=== PATIENT | female | born 1960 | race Caucasian/White ===

== ENCOUNTER 2022-05-31 12:30 | Inpatient (IN) ==
[2022-05-31] MEDS ORDERED: ALBUT/IPRATROP 3MG/0.5MG NEB 3 ML VIAL ONE (12:37)
[2022-05-31] MEDS ORDERED: LORazepam 2 MG/2 ML SYR IV STA (12:39)
[2022-05-31] MEDS ORDERED: ALBUT/IPRATROP 3MG/0.5MG NEB 3 ML VIAL NEB STA (12:39)
[2022-05-31] MEDS ORDERED: LORazepam 2 MG/2 ML SYR ONE (12:39)
[2022-05-31 13:03] LABS: Base Excess VBG 2.3 mEq/L; Basophils # (auto) 0.02 K/uL (0-0.2); Basophils % (auto) 0.3 %; Eosinophils # (auto) 0.02 K/uL (0-0.50); Eosinophils % (auto) 0.3 %; HCO3 VBG 24 mmol/L; Hematocrit (blood only) 44.9 % (34.1-44.9); Hemoglobin 14.5 g/dl (12.0-16.0); Immature Granulocytes # (auto) 0.06 K/uL (0.00-0.02); Immature Granulocytes % (auto) 0.8 %; Lymphocytes # (auto) 1.07 K/uL (1.2-3.4); Lymphocytes % (auto) 14.9 %; Mean Corpuscular Hemoglobin 25.8 pg (25.0-34.0); Mean Corpuscular Hgb Conc 32.3 g/dL (32.0-36.0); Mean Corpuscular Volume 79.9 fL (80.0-100.0); Mean Platelet Volume 9.4 fL (9.4-12.3); Monocytes # (auto) 0.27 K/uL (0.24-0.82); Monocytes % (auto) 3.8 %; Neutrophils # (auto) 5.76 K/uL (1.4-6.5); Neutrophils % (auto) 79.9 %; PCO2 VBG 28 mmHg (38-50); PO2 VBG 44 mmHg; Platelet Count 186 K/uL (130-400); RDW Standard Deviation 49.7 fL (36.4-46.3); Red Blood Count 5.62 M/uL (3.93-5.22); pH VBG 7.54 (7.36-7.41)
--- NOTE | 2022-05-31 13:17 | Emergency Department Note ---
History of Present Illness General Chief Complaint: Shortness of Breath/Dyspnea Stated Complaint: SOB Time Seen by Provider: 05/31/22 12:33 History of Present Illness Provider Complaint: shortness of breath and "asthma attack" Onset (ago): hour(s) (1) Severity: similar to previous episodes Consistency/Duration: + progressively worsening Relieved By: + nothing Exacerbated By: + strong odors (Patient was at work at [employer] and the patient had strong perfume on which triggered her asthma attack. Patient states this is happened in the past.) Context: no recent illness, no choking/aspiration, no medication noncompliance, no recent travel, no trauma/injury or no elevated blood glucose Known history of: asthma Associated symptoms: + cough and + wheezing; no pain with inspiration, no fever, no sputum production, no orthopnea, no polyuria, no polydipsia, no palpitations, no hemoptysis, no diaphoresis, no syncope, no abdominal pain, no rash, no chest congestion, no dizziness or no lightheadedness Treatment prior to arrival: oxygen, bronchodilator (1 albuterol treatment and 2 duo nebs) and other (Solu-Medrol 125 mg) Related Data Home oxygen amount: none Home Medications Medication Instructions Recorded Confirmed Type albuterol sulfate 90 mcg/actuation 2 puff inhalation Q4 PRN Shortness 09/20/18 11/13/19 History aerosol inhaler (Ventolin HFA) Of Breath Or Wheezing bupropion HCl 150 mg tablet,12 hr 150 mg PO QAM 09/20/18 11/13/19 History sustained-release citalopram 40 mg tablet 40 mg PO QAM 09/20/18 11/13/19 History cyclobenzaprine 10 mg tablet 10 mg PO HS PRN Muscle Spasm 09/20/18 11/13/19 History furosemide 40 mg tablet 40 mg PO BID 09/20/18 11/13/19 History insulin aspart U-100 100 unit/mL 0 - 100 unit subcut .PUMP 09/20/18 11/13/19 History subcutaneous cartridge ipratropium 0.5 mg-albuterol 3 mg 3 ml inhalation Q6 PRN Shortness 09/20/18 11/13/19 History (2.5 mg base)/3 mL nebulization Of Breath Or Wheezing soln semaglutide 1 mg/dose (2 mg/1.5 1 dose subcut [place] 09/20/18 11/13/19 History mL) subcutaneous pen injector (Ozempic) spironolactone 25 mg tablet 25 mg PO BID 09/20/18 11/13/19 History triamcinolone acetonide 0.1 % 1 applic topical BID PRN breakouts 09/20/18 11/13/19 History topical cream prednisone 10 mg tablet See Rx Instructions .Route 11/13/19 Rx .COMPLEX #30 tabs Allergies Allergy/AdvReac Type Severity Reaction Status Date / Time Qzwaqks-INB-HdL Reductase Allergy Mild generalized Verified 11/13/19 14:20 Inhibitor ache all [Vzfzxzj-Gfy-Eyi Reductase over body Inhibitor] codeine AdvReac Mild NAUSEA/VOMI Verified 11/13/19 14:20 TING Past Med/Surg History Medical History Asthma Diabetes No known health problems No pertinent family history Surgical History No pertinent past surgical history Social History Smoking Status: Never smoker Hx Alcohol Use: No Hx Substance Use: No Preferred Language: Montenegrin Clerk Guide Required: Yes Beliefs That Will Affect Care: None Current Living Situation: Significant Other Other Information That Helps Us Care for You: No Feels Safe at Home: Yes Safety Concerns: Feels Safe At This Time Assistive Devices: BiPap, Denture - Upper, Denture - Lower, Glasses and Oxygen - Continuous Review of Systems A total of 10 systems reviewed and were otherwise negative Physical Exam Vital Signs: Vital Signs - 24 hr 05/31/22 12:48 05/31/22 12:12 05/31/22 12:12 Pulse Rate 84 90 90 Pulse Rate from Sp O2 Sensor Pulse Rhythm Regular Regular Pulse Strength Normal Respiratory Rate 23 26 H 26 H Respiratory Effort / Characteristics Spontaneous Access ory Muscle Use Lab ored Short of [place] th Spontaneous Labore d Respiratory Depth Normal Normal Respiratory Patter n Regular Tachypnea Blood Pressure 148/85 H Blood Pressure Xenia n 106 Blood Pressure Pos ition Sitting Pulse Oximetry 100 96 96 Oxygen Delivery Me thod Nasal Cannula Nebu lizer Nasal Cannula Nebu lizer Oxygen Flow Rate Fraction of Inspir ed Oxygen 30 SaO2/FiO2 Ratio Sepsis Recent Feve r Within 48 Hours No Sepsis New/Unexpla ined Change in Men brady Status N/A Sepsis Action Take n by Nursing No Action Required 05/31/22 12:12 05/31/22 12:12 05/31/22 13:11 Pulse Rate 88 Pulse Rate from Sp O2 Sensor Pulse Rhythm Regular Pulse Strength Respiratory Rate 18 Respiratory Effort / Characteristics Labored Respiratory Depth Shallow Respiratory Patter n Tachypnea Blood Pressure Blood Pressure Xenia n Blood Pressure Pos ition Pulse Oximetry 99 Oxygen Delivery Me thod Nasal Cannula Nebu lizer Nasal Cannula Nebu lizer BiPAP Oxygen Flow Rate Fraction of Inspir ed Oxygen 30 SaO2/FiO2 Ratio 330 Sepsis Recent Feve r Within 48 Hours Sepsis New/Unexpla ined Change in Men brady Status Sepsis Action Take n by Nursing 05/31/22 13:14 05/31/22 13:15 05/31/22 13:30 Pulse Rate 87 89 88 Pulse Rate from Sp O2 Sensor Pulse Rhythm Pulse Strength Respiratory Rate 18 15 15 Respiratory Effort / Characteristics Respiratory Depth Respiratory Patter n Blood Pressure Blood Pressure Xenia n Blood Pressure Pos ition Pulse Oximetry 98 98 99 Oxygen Delivery Me thod BiPAP BiPAP BiPAP Oxygen Flow Rate Fraction of Inspir ed Oxygen 30 30 SaO2/FiO2 Ratio Sepsis Recent Feve r Within 48 Hours Sepsis New/Unexpla ined Change in Men brady Status Sepsis Action Take n by Nursing 05/31/22 13:45 05/31/22 14:00 05/31/22 14:15 Pulse Rate 92 H 85 86 Pulse Rate from Sp O2 Sensor Pulse Rhythm Pulse Strength Respiratory Rate 14 19 17 Respiratory Effort / Characteristics Respiratory Depth Respiratory Patter n Blood Pressure Blood Pressure Xenia n Blood Pressure Pos ition Pulse Oximetry 99 99 98 Oxygen Delivery Me thod BiPAP BiPAP BiPAP Oxygen Flow Rate Fraction of Inspir ed Oxygen SaO2/FiO2 Ratio Sepsis Recent Feve r Within 48 Hours Sepsis New/Unexpla ined Change in Men brady Status Sepsis Action Take n by Nursing 05/31/22 14:30 05/31/22 14:45 05/31/22 15:31 Pulse Rate 83 86 Pulse Rate from Sp O2 Sensor Pulse Rhythm Pulse Strength Respiratory Rate 20 18 Respiratory Effort / Characteristics Respiratory Depth Respiratory Patter n Blood Pressure Blood Pressure Xenia n Blood Pressure Pos ition Pulse Oximetry 99 97 Oxygen Delivery Me thod BiPAP BiPAP BiPAP Oxygen Flow Rate 5 Fraction of Inspir ed Oxygen SaO2/FiO2 Ratio Sepsis Recent Feve r Within 48 Hours Sepsis New/Unexpla ined Change in Men brady Status Sepsis Action Take n by Nursing 05/31/22 14:50 05/31/22 15:00 05/31/22 15:10 Pulse Rate 88 89 88 Pulse Rate from Sp O2 Sensor 88 88 88 Pulse Rhythm Pulse Strength Respiratory Rate 16 17 17 Respiratory Effort / Characteristics Respiratory Depth Respiratory Patter n Blood Pressure Blood Pressure Xenia n Blood Pressure Pos ition Pulse Oximetry 99 98 97 Oxygen Delivery Me thod BiPAP BiPAP BiPAP Oxygen Flow Rate Fraction of Inspir ed Oxygen SaO2/FiO2 Ratio Sepsis Recent Feve r Within 48 Hours Sepsis New/Unexpla ined Change in Men brady Status Sepsis Action Take n by Nursing 05/31/22 15:20 05/31/22 15:30 05/31/22 15:31 Pulse Rate 85 82 Pulse Rate from Sp O2 Sensor 86 83 Pulse Rhythm Pulse Strength Respiratory Rate 18 18 Respiratory Effort / Characteristics Respiratory Depth Respiratory Patter n Blood Pressure 135/90 Blood Pressure Xenia n 105 Blood Pressure Pos ition Pulse Oximetry 99 100 Oxygen Delivery Me thod BiPAP BiPAP BiPAP Oxygen Flow Rate Fraction of Inspir ed Oxygen SaO2/FiO2 Ratio Sepsis Recent Feve r Within 48 Hours Sepsis New/Unexpla ined Change in Men brady Status Sepsis Action Take n by Nursing 05/31/22 15:31 05/31/22 15:10 Pulse Rate 85 86 Pulse Rate from Sp O2 Sensor 85 Pulse Rhythm Pulse Strength Respiratory Rate 12 23 Respiratory Effort / Characteristics Non-Labored Sponta neous Respiratory Depth Normal Respiratory Patter n Regular Blood Pressure Blood Pressure Xenia n Blood Pressure Pos ition Pulse Oximetry 100 98 Oxygen Delivery Me thod BiPAP Oxygen Flow Rate Fraction of Inspir ed Oxygen 30 SaO2/FiO2 Ratio Sepsis Recent Feve r Within 48 Hours Sepsis New/Unexpla ined Change in Men brady Status Sepsis Action Take n by Nursing Physical Exam: Physical Exam HENT: Exam performed. -Head: Normocephalic and atraumatic. -Right Ear: External ear normal. No mastoid tenderness. -Left Ear: External ear normal. No mastoid tenderness. -Mouth/Throat: The oropharynx is clear and moist. No trismus in the jaw. No dental abscesses or uvula swelling. No oropharyngeal exudate or tonsillar abscesses. EYES: Conjunctivae and EOM are normal. Pupils are equal, round, and reactive to light. Right eye exhibits no discharge. Left eye exhibits no discharge. No scleral icterus. NECK: Normal range of motion. Neck supple. No JVD present. No spinous process tenderness present. No carotid bruit present. No rigidity. No tracheal deviation and normal range of motion present. No Brudzinski's sign and no Kernig's sign noted. CV: Normal rate, regular rhythm, normal heart sounds and intact distal pulses. There is no peripheral edema. Palpable radial pulses bue. PULM/CHEST: Tachypneic respiratory distress wheezes bilaterally. ABD: The abdomen is soft. Bowel sounds are normal. She has no distension. No mass is present. There is no tenderness. There is no rebound, no guarding, no Carbajal's sign and no tenderness at McBurney's point. Rovsig negative MUSC/SKEL: Normal range of motion. There is no peripheral edema, tenderness or deformity. LYMPH: No cervical adenopathy. NEURO: She is alert and oriented to person, place, and time. She has normal strength. No cranial nerve deficit or sensory deficit. Coordination and gait normal. GCS eye subscore is 4. GCS verbal subscore is 5. GCS motor subscore is 6. Cerebellar tests wnl. SKIN: Skin is warm and dry. She is not diaphoretic. PSYCH: She has a normal mood and affect. Behavior is normal. Judgment and thought content normal. Course Course 1233: The patient was evaluated in room A9. A complete history and physical exam was performed Cardiac monitoring: An order was placed for continuous cardiac monitoring. The monitor shows a rate of 90 with sinus rhythm EMS reports that while in the hallway waiting for bed the patient started to have more tachypnea and wheezing worse. Another DuoNeb was ordered for the patient. Patient was still having a lot of tachypnea will start the patient on BiPAP. 1300: Patient tolerating BiPAP well. 1430: Vital signs stable on BiPAP. Patient tolerating BiPAP well. Labs and imaging within normal limits. Patient [facility] be [facility] team for asthma exacerbation. Administered Medications Insulin Aspart (Novolog Insulin Pump) 1 each N/A [facility]; Protocol Stop: 06/30/22 16:29 Last Admin: 05/31/22 18:00 Dose: 1 each Documented By: EVERETT Discontinued Medications Albuterol (Albut/Ipratrop 3mg/0.5mg Neb 3 Ml Vial) Confirm Administered Dose 3 ml .ROUTE .STK-MED ONE Stop: 05/31/22 12:38 Last Admin: 05/31/22 12:50 Dose: 3 ml Documented By: KAVITA Albuterol (Albut/Ipratrop 3mg/0.5mg Neb 3 Ml Vial) 3 ml NEB NOW STA; Protocol Stop: 05/31/22 12:40 Last Admin: 05/31/22 12:50 Dose: Not Given Documented By: KAVITA Albuterol (Albuterol 0.083% Nebu Soln 3 Ml Vial) 2.5 mg NEB NOW STA; Protocol Stop: 05/31/22 15:44 Last Admin: 05/31/22 16:09 Dose: 2.5 mg Documented By: JENNIFER Magnesium Sulfate/Dextrose (Magnesium Sulfate / D5w) 1 gm in 100 mls @ 50 mls/hr IV ONE ONE Stop: 05/31/22 17:44 Last Infusion: 05/31/22 18:26 Dose: 0 mls/hr Documented By: Admin: 05/31/22 16:24 Dose: 50 mls/hr Documented By: DARY Lorazepam (Lorazepam 2 Mg/1 Ml Vial) Confirm Administered Dose 1 mg .ROUTE .STK- MED ONE Stop: 05/31/22 12:40 Last Admin: 05/31/22 12:50 Dose: 1 mg Documented By: KAVITA Lorazepam (Lorazepam 2 Mg/1 Ml Vial) 0.5 mg IV NOW STA; Protocol Stop: 05/31/22 12:40 Last Admin: 05/31/22 12:50 Dose: Not Given Documented By: KAVITA Methylprednisolone (Methylprednisolone 40 Mg/Ml Vial) 40 mg IV NOW STA Stop: 05/31/22 15:55 Last Admin: 05/31/22 16:38 Dose: 40 mg Documented By: DARY Medical Decision Making Laboratory Data Result diagrams: 05/31/22 12:44 05/31/22 13:52 Lab Results 05/31/22 05/31/22 05/31/22 Range/Units 12:44 12:44 12:44 WBC 7.20 (4.8-10.8) K/ul RBC 5.62 H (3.93-5.22) M/uL Hgb 14.5 (12.0-16.0) g/dl Hct 44.9 (34.1-44.9) % MCV 79.9 L (80.0-100.0) fL MCH 25.8 (25.0-34.0) pg MCHC 32.3 (32.0-36.0) g/dL RDW Std Deviation 49.7 H (36.4-46.3) fL RDW Coeff of Jerome 18.0 H (11.5-14.5) % Plt Count 186 (130-400) K/uL MPV 9.4 (9.4-12.3) fL Immature Gran % (Auto) 0.8 % Neut % (Auto) 79.9 % Lymph % (Auto) 14.9 % Robeson % (Auto) 3.8 % Eos % (Auto) 0.3 % Baso % (Auto) 0.3 % Neut # (Auto) 5.76 (1.4-6.5) K/uL Lymph # (Auto) 1.07 L (1.2-3.4) K/uL Robeson # (Auto) 0.27 (0.24-0.82) K/uL Eos # (Auto) 0.02 (0-0.50) K/uL Baso # (Auto) 0.02 (0-0.2) K/uL Immature Gran # (Auto) 0.06 H (0.00-0.02) K/uL VBG pH 7.54 H (7.36-7.41) VBG pCO2 28 L (38-50) mmHg VBG pO2 44 mmHg VBG HCO3 24 mmol/L VBG O2 Saturation 76.0 % VBG Base Excess 2.3 mEq/L Sodium 139 (136-145) mmol/L Potassium TNP Chloride 106 (98-107) mmol/L Carbon Dioxide 23 (21-32) mmol/L Anion Gap 10 (3-11) BUN 17 (6-23) mg/dl Creatinine 0.89 (0.6-1.2) mg/dl Est Cr Clr Drug Dosing 77.8 ml/min Est GFR ( Amer) 80.5 ml/min Est GFR (Non-Af Amer) 69.5 ml/min BUN/Creatinine Ratio 19.1 (10-20) Glucose 145 H (70-99(Fasting)) mg/dl POC Glucose (70-99) mg/dl Calcium 9.7 (8.5-10.1) mg/dl Magnesium (1.7-2.4) mg/dl SARS-CoV-2, RNA, NAAT (NEGATIVE) 05/31/22 05/31/22 05/31/22 Range/Units 12:57 13:40 13:52 WBC (4.8-10.8) K/ul RBC (3.93-5.22) M/uL Hgb (12.0-16.0) g/dl Hct (34.1-44.9) % MCV (80.0-100.0) fL MCH (25.0-34.0) pg MCHC (32.0-36.0) g/dL RDW Std Deviation (36.4-46.3) fL RDW Coeff of Jerome (11.5-14.5) % Plt Count (130-400) K/uL MPV (9.4-12.3) fL Immature Gran % (Auto) % Neut % (Auto) % Lymph % (Auto) % Robeson % (Auto) % Eos % (Auto) % Baso % (Auto) % Neut # (Auto) (1.4-6.5) K/uL Lymph # (Auto) (1.2-3.4) K/uL Robeson # (Auto) (0.24-0.82) K/uL Eos # (Auto) (0-0.50) K/uL Baso # (Auto) (0-0.2) K/uL Immature Gran # (Auto) (0.00-0.02) K/uL VBG pH (7.36-7.41) VBG pCO2 (38-50) mmHg VBG pO2 mmHg VBG HCO3 mmol/L VBG O2 Saturation % VBG Base Excess mEq/L Sodium (136-145) mmol/L Potassium 3.9 Chloride (98-107) mmol/L Carbon Dioxide (21-32) mmol/L Anion Gap (3-11) BUN (6-23) mg/dl Creatinine (0.6-1.2) mg/dl Est Cr Clr Drug Dosing ml/min Est GFR ( Amer) ml/min Est GFR (Non-Af Amer) ml/min BUN/Creatinine Ratio (10-20) Glucose (70-99(Fasting)) mg/dl POC Glucose 156 H (70-99) mg/dl Calcium (8.5-10.1) mg/dl Magnesium (1.7-2.4) mg/dl SARS-CoV-2, RNA, NAAT NEGATIVE (NEGATIVE) 05/31/22 Range/Units 13:52 WBC (4.8-10.8) K/ul RBC (3.93-5.22) M/uL Hgb (12.0-16.0) g/dl Hct (34.1-44.9) % MCV (80.0-100.0) fL MCH (25.0-34.0) pg MCHC (32.0-36.0) g/dL RDW Std Deviation (36.4-46.3) fL RDW Coeff of Jerome (11.5-14.5) % Plt Count (130-400) K/uL MPV (9.4-12.3) fL Immature Gran % (Auto) % Neut % (Auto) % Lymph % (Auto) % Robeson % (Auto) % Eos % (Auto) % Baso % (Auto) % Neut # (Auto) (1.4-6.5) K/uL Lymph # (Auto) (1.2-3.4) K/uL Robeson # (Auto) (0.24-0.82) K/uL Eos # (Auto) (0-0.50) K/uL Baso # (Auto) (0-0.2) K/uL Immature Gran # (Auto) (0.00-0.02) K/uL VBG pH (7.36-7.41) VBG pCO2 (38-50) mmHg VBG pO2 mmHg VBG HCO3 mmol/L VBG O2 Saturation % VBG Base Excess mEq/L Sodium (136-145) mmol/L Potassium Chloride (98-107) mmol/L Carbon Dioxide (21-32) mmol/L Anion Gap (3-11) BUN (6-23) mg/dl Creatinine (0.6-1.2) mg/dl Est Cr Clr Drug Dosing ml/min Est GFR ( Amer) ml/min Est GFR (Non-Af Amer) ml/min BUN/Creatinine Ratio (10-20) Glucose (70-99(Fasting)) mg/dl POC Glucose (70-99) mg/dl Calcium (8.5-10.1) mg/dl Magnesium 2.0 (1.7-2.4) mg/dl SARS-CoV-2, RNA, NAAT (NEGATIVE) Imaging Data Radiologist's Impression: Chest X-Ray 05/31/22 12:39 XR chest 1V portable HISTORY: Shortness of breath. COMPARISON: Chest 11/13/2019. FINDINGS: There are low lung volumes. The cardiac silhouette is normal in size. No new focal lung consolidations to suggest pneumonia. No evidence for pulmonary edema. No pleural effusions. No pneumothorax. IMPRESSION: No acute process. ACT 112: Negative or not required by law. Electronically signed by: Adrien Che M.D. 05/31/2022 1:32 PM ECG Data Interpretation: Sinus rhythm with a rate of 88. DE 154 QRS [address] elevation or ST depression. [facility] Narrative 1233: The patient was evaluated in room A9. A complete history and physical exam was performed Cardiac monitoring: An order was placed for continuous cardiac monitoring. The monitor shows a rate of 90 with sinus rhythm EMS reports that while in the hallway waiting for bed the patient started to have more tachypnea and wheezing worse. Another DuoNeb was ordered for the patient. Patient was still having a lot of tachypnea will start the patient on BiPAP. 1300: Patient tolerating BiPAP well. 1430: Vital signs stable on BiPAP. Patient tolerating BiPAP well. Labs and imaging within normal limits. Patient will be admitted to the [facility] team for asthma exacerbation. Impression & Plan Status asthmaticus Critical Care Time Critical Care Time: Yes Total Critical Care Time: 50 I have personally spent greater than 50 minutes of critical care time in the direct management of this patient. This includes bedside care, interpretation of diagnostic studies, and testing, discussion with consultants, patient, and family members, and other required patient management activities. This 50 minutes is in excess of all separately billable procedures. Discharge Plan Visit Data Chief Complaint: Shortness of Breath/Dyspnea Stated Complaint: SOB ED Provider: Nigel Carson Discharge Problem: Status asthmaticus Patient Disposition: Admitted As Inpatient Discharge Instructions Interventions: ED Discharge Assessment Last Done: 05/31/22 17:09
--- NOTE | 2022-05-31 13:33 | XRay Report ---
XR chest 1V portable HISTORY: Shortness of breath. COMPARISON: Chest 11/13/2019. FINDINGS: There are low lung volumes. The cardiac silhouette is normal in size. No new focal lung con solidations to suggest pneumonia. No evidence for pulmonary edema. No pleural effusions. No pneumotho rax. IMPRESSION: No acute process. ACT 112: Negative or not required by law. Electronically signed by: Adrien Che M.D. 05/31/2022 1:32 PM
[2022-05-31 13:43] LABS: Anion Gap 10 (3-11); BUN Creatinine Ratio 19.1 (10-20); Blood Urea Nitrogen 17 mg/dl (6-23); Calcium 9.7 mg/dl (8.5-10.1); Carbon Dioxide 23 mmol/L (21-32); Chloride 106 mmol/L (98-107); Creatinine Clr Calc Pharmacy 77.8 ml/min; Est GFR (African American) 80.5 ml/min; Est GFR (Non-African American) 69.5 ml/min; Glucose 145 mg/dl (70-99(Fasting)); Sodium 139 mmol/L (136-145)
[2022-05-31] MEDS ORDERED: ALBUTEROL 0.083% NEBU SOLN 3 ML VIAL NEB STA (15:43)
[2022-05-31] MEDS ORDERED: ALBUTEROL 0.083% NEBU SOLN 3 ML VIAL NEB PRN (15:43)
[2022-05-31] MEDS ORDERED: MAGNESIUM SULFATE / D5W 1 GM/100 ML BAG IV ONE (15:45)
[2022-05-31] MEDS ORDERED: PHARMACY GLYCEMIC MGMT CONSULT PRN (15:48)
--- NOTE | 2022-05-31 15:54 | History & Physical Report ---
Date of Service May 31, 2022 Assessment & Plan (1) Asthma: Plan: Patient with history of severe persistent asthma History of sleep apnea on CPAP Reports previous asthma attack after inhalation of cleaning products Current trigger seems to be patient's perfume Denies hospitalization for asthma exacerbation Prior to ED received Solu-Medrol 125, and DuoNeb In the ED received DuoNeb and was started on BiPAP Continue BiPAP for now Obtain ABG Give magnesium IV, and check magnesium level DuoNeb, Solu-Medrol IV [id number], albuterol neb prn procalcitonin AM Pulmonary consult (2) Diabetes: Plan: Patient with history of diabetes mellitus type 1, on insulin pump -Continue insulin pump, contacted glycemic pharmacist -Per patient, her last A1c was 7.9%. will check A1c am - Obesity w/BMI 40 -Lifestyle modification counseling recommended prior to discharge History of Carney's esophagus -PPI Depression - cont. home meds History of Present Illness Chief Complaint: shortness of breath Primary Care Provider: Myron Callahan MD 62-year-old female with history of type 1 diabetes mellitus, with insulin pump, severe persistent asthma, hypertension, Carney's esophagus, obesity with BMI of 40, CAMERON on CPAP presents with shortness of breath. 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 Patient reports that happened to her before with inhalation of cleaning products. At that time she reports she presented to the hospital but did not have to be hospitalized. Prior to coming to the ED patient received Solu-Medrol 125 mg, and DuoNeb. In the ED she received DuoNeb again, and also started on BiPAP. She appears fairly comfortable on BiPAP, she is alert and oriented and answering questions appropriately. Denies feeling ill or sick in any way prior to this incident. Denies any history of fevers chills chest pain. She denies sick contacts and reports wearing a mask in the clinic. Reports being vaccinated for COVID. Denies any abdominal pain, nausea or vomiting. Her significant other is present at the bedside and confirms the history. Allergies Allergy/AdvReac Type Severity Reaction Status Date / Time Ibausla-BAP-IkQ Reductase Allergy Mild generalized Verified 11/13/19 14:20 Inhibitor ache all [Xjtvgvj-Ckd-Pwp Reductase over body Inhibitor] codeine AdvReac Mild NAUSEA/VOMI Verified 11/13/19 14:20 TING Home Medications Medication Instructions Recorded Confirmed Type albuterol sulfate 90 mcg/actuation 2 puff inhalation Q4 PRN Shortness 09/20/18 11/13/19 History aerosol inhaler (Ventolin HFA) Of Breath Or Wheezing bupropion HCl 150 mg tablet,12 hr 150 mg PO QAM 09/20/18 11/13/19 History sustained-release citalopram 40 mg tablet 40 mg PO QAM 09/20/18 11/13/19 History cyclobenzaprine 10 mg tablet 10 mg PO HS PRN Muscle Spasm 09/20/18 11/13/19 History furosemide 40 mg tablet 40 mg PO BID 09/20/18 11/13/19 History insulin aspart U-100 100 unit/mL 0 - 100 unit subcut .PUMP 09/20/18 11/13/19 His tory subcutaneous cartridge ipratropium 0.5 mg-albuterol 3 mg 3 ml inhalation Q6 PRN Shortness 09/20/18 11/13/19 History (2.5 mg base)/3 mL nebulization Of Breath Or Wheezing soln semaglutide 1 mg/dose (2 mg/1.5 1 dose subcut MILTON 09/20/18 11/13/19 History mL) subcutaneous pen injector (Ozempic) spironolactone 25 mg tablet 25 mg PO BID 09/20/18 11/13/19 History triamcinolone acetonide 0.1 % 1 applic topical BID PRN breakouts 09/20/18 11/13/19 History topical cream prednisone 10 mg tablet See Rx Instructions .Route 11/13/19 Rx .COMPLEX #30 tabs Past Med/Surg History Medical History Asthma Diabetes No known health problems No pertinent family history Surgical History No pertinent past surgical history Social History Smoking Status: Never smoker Preferred Language: Mexican Feels Safe at Home: Yes Review of Systems Review of Systems: All systems reviewed & are unremarkable except as noted in Subjective Physical Exam Constitutional: WD/WN, vitals as above (obese F on bipap) Eyes: PERRL, conjunctivae normal, anicteric sclerae ENMT: external ear and nose normal, oropharynx normal Neck: + thick neck Respiratory: + cough Auscultation: + wheezes (mild exp., on bipap) Cardiovascular: RRR, no murmur, no edema Chest (Breasts): Chest: normal inspection of chest Gastrointestinal (Abdomen): normal bowel sounds, soft, nontender, no hepatosplenomegaly Musculoskeletal: no cyanosis or clubbing, extremities motor strength 5/5 Skin: no rashes, warm and dry Neurologic: PERRL, EOMI, accommodation nl, no face palsy, no dysarthria Psychiatric: A+Ox3, euthymic affect Genitourinary: no CVA tenderness Results & Data Results & Data ([facility]) Vital Signs (Past 12 Hours) Vital Signs Pulse Resp BP Pulse Ox O2 Del Method O2 Flow Rate FiO2 05/31/22 15:10 86 23 98 30 05/31/22 15:31 85 12 100 BiPAP 05/31/22 15:31 135/90 BiPAP 05/31/22 15:30 82 18 100 BiPAP 05/31/22 15:20 85 18 99 BiPAP 05/31/22 15:10 88 17 97 BiPAP 05/31/22 15:00 89 17 98 BiPAP 05/31/22 14:50 88 16 99 BiPAP 05/31/22 15:31 BiPAP 5 05/31/22 14:45 86 18 97 BiPAP 05/31/22 14:30 83 20 99 BiPAP 05/31/22 14:15 86 17 98 BiPAP 05/31/22 14:00 85 19 99 BiPAP 05/31/22 13:45 92 H 14 99 BiPAP 05/31/22 13:30 88 15 99 BiPAP 05/31/22 13:15 89 15 98 BiPAP 30 05/31/22 13:14 87 18 98 BiPAP 30 05/31/22 13:11 88 18 99 BiPAP 30 05/31/22 12:12 Nasal Cannula, Nebulizer 05/31/22 12:12 Nasal Cannula, Nebulizer 05/31/22 12:12 90 26 H 96 Nasal Cannula, Nebulizer 05/31/22 12:12 90 26 H 148/85 H 96 Nasal Cannula, Nebulizer 05/31/22 12:48 84 23 100 30 Laboratory Results 05/31/22 05/31/22 05/31/22 Range/Units 13:52 13:52 13:40 WBC (4.8-10.8) K/ul RBC (3.93-5.22) M/uL Hgb (12.0-16.0) g/dl Hct (34.1-44.9) % MCV (80.0-100.0) fL MCH (25.0-34.0) pg MCHC (32.0-36.0) g/dL RDW Std Deviation (36.4-46.3) fL RDW Coeff of Jerome (11.5-14.5) % Plt Count (130-400) K/uL MPV (9.4-12.3) fL Immature Gran % (Auto) % Neut % (Auto) % Lymph % (Auto) % [place] % (Auto) % Eos % (Auto) % Baso % (Auto) % Neut # (Auto) (1.4-6.5) K/uL Lymph # (Auto) (1.2-3.4) K/uL [place] # (Auto) (0.24-0.82) K/uL Eos # (Auto) (0-0.50) K/uL Baso # (Auto) (0-0.2) K/uL Immature Gran # (Auto) (0.00-0.02) K/uL VBG pH (7.36-7.41) VBG pCO2 (38-50) mmHg VBG pO2 mmHg VBG HCO3 mmol/L VBG O2 Saturation % VBG Base Excess mEq/L Sodium (136-145) mmol/L Potassium 3.9 Chloride (98-107) mmol/L Carbon Dioxide (21-32) mmol/L Anion Gap (3-11) BUN (6-23) mg/dl Creatinine (0.6-1.2) mg/dl Est Cr Clr Drug Dosing ml/min Est GFR ( Amer) ml/min Est GFR (Non-Af Amer) ml/min BUN/Creatinine Ratio (10-20) Glucose (70-99(Fasting)) mg/dl POC Glucose (70-99) mg/dl Calcium (8.5-10.1) mg/dl Magnesium Pending SARS-CoV-2, RNA, NAAT NEGATIVE (NEGATIVE) 05/31/22 05/31/22 05/31/22 Range/Units 12:57 12:44 12:44 WBC (4.8-10.8) K/ul RBC (3.93-5.22) M/uL Hgb (12.0-16.0) g/dl Hct (34.1-44.9) % MCV (80.0-100.0) fL MCH (25.0-34.0) pg MCHC (32.0-36.0) g/dL RDW Std Deviation (36.4-46.3) fL RDW Coeff of Jerome (11.5-14.5) % Plt Count (130-400) K/uL MPV (9.4-12.3) fL Immature Gran % (Auto) % Neut % (Auto) % Lymph % (Auto) % [place] % (Auto) % Eos % (Auto) % Baso % (Auto) % Neut # (Auto) (1.4-6.5) K/uL Lymph # (Auto) (1.2-3.4) K/uL [place] # (Auto) (0.24-0.82) K/uL Eos # (Auto) (0-0.50) K/uL Baso # (Auto) (0-0.2) K/uL Immature Gran # (Auto) (0.00-0.02) K/uL VBG pH 7.54 H (7.36-7.41) VBG pCO2 28 L (38-50) mmHg VBG pO2 44 mmHg VBG HCO3 24 mmol/L VBG O2 Saturation 76.0 % VBG Base Excess 2.3 mEq/L Sodium 139 (136-145) mmol/L Potassium TNP Chloride 106 (98-107) mmol/L Carbon Dioxide 23 (21-32) mmol/L Anion Gap 10 (3-11) BUN 17 (6-23) mg/dl Creatinine 0.89 (0.6-1.2) mg/dl Est Cr Clr Drug Dosing 77.8 ml/min Est GFR ( Amer) 80.5 ml/min Est GFR (Non-Af Amer) 69.5 ml/min BUN/Creatinine Ratio 19.1 (10-20) Glucose 145 H (70-99(Fasting)) mg/dl POC Glucose 156 H (70-99) mg/dl Calcium 9.7 (8.5-10.1) mg/dl Magnesium SARS-CoV-2, RNA, NAAT (NEGATIVE) 05/31/22 Range/Units 12:44 WBC 7.20 (4.8-10.8) K/ul RBC 5.62 H (3.93-5.22) M/uL Hgb 14.5 (12.0-16.0) g/dl Hct 44.9 (34.1-44.9) % MCV 79.9 L (80.0-100.0) fL MCH 25.8 (25.0-34.0) pg MCHC 32.3 (32.0-36.0) g/dL RDW Std Deviation 49.7 H (36.4-46.3) fL RDW Coeff of Jerome 18.0 H (11.5-14.5) % Plt Count 186 (130-400) K/uL MPV 9.4 (9.4-12.3) fL Immature Gran % (Auto) 0.8 % Neut % (Auto) 79.9 % Lymph % (Auto) 14.9 % [place] % (Auto) 3.8 % Eos % (Auto) 0.3 % Baso % (Auto) 0.3 % Neut # (Auto) 5.76 (1.4-6.5) K/uL Lymph # (Auto) 1.07 L (1.2-3.4) K/uL [place] # (Auto) 0.27 (0.24-0.82) K/uL Eos # (Auto) 0.02 (0-0.50) K/uL Baso # (Auto) 0.02 (0-0.2) K/uL Immature Gran # (Auto) 0.06 H (0.00-0.02) K/uL VBG pH (7.36-7.41) VBG pCO2 (38-50) mmHg VBG pO2 mmHg VBG HCO3 mmol/L VBG O2 Saturation % VBG Base Excess mEq/L Sodium (136-145) mmol/L Potassium Chloride (98-107) mmol/L Carbon Dioxide (21-32) mmol/L Anion Gap (3-11) BUN (6-23) mg/dl Creatinine (0.6-1.2) mg/dl Est Cr Clr Drug Dosing ml/min Est GFR ( Amer) ml/min Est GFR (Non-Af Amer) ml/min BUN/Creatinine Ratio (10-20) Glucose (70-99(Fasting)) mg/dl POC Glucose (70-99) mg/dl Calcium (8.5-10.1) mg/dl Magnesium SARS-CoV-2, RNA, NAAT (NEGATIVE) Diagnostic Findings CXR Code Status & VTE Plan VTE Prophylaxis Plan VTE Prophylaxis will be ordered: Yes
[2022-05-31] MEDS ORDERED: GLUCOSE 40% GEL 15 GM TUBE PO PRN (16:00)
[2022-05-31] MEDS ORDERED: GLUCAGON FOR INJ 1 MG VIAL SQ PRN (16:00)
[2022-05-31] MEDS ORDERED: INSULIN ASPART 100 UNITS/ML VIAL SC PRN (16:00)
[2022-05-31] MEDS ORDERED: CARBOHYDRATES FOR HYPOGLYCEMIA PO PRN (16:00)
[2022-05-31] MEDS ORDERED: DEXTROSE 50% 50 ML SYRINGE IV PRN (16:00)
[2022-05-31] MEDS ORDERED: GLUCOSE 10 TAB/TUBE PO PRN (16:00)
[2022-05-31 16:21] LABS: Base Excess ABG -0.4 mEq/L (-9-1.8); HCO3 ABG 23 mmol/L (19-24); Oxygen Saturation ABG 98.9 % (90-95); PCO2 ABG 33 mmHg (35-46); PO2 ABG 137 mmHg (80-95); pH ABG 7.45 (7.35-7.45)
[2022-05-31 16:24] LABS: Allen Test Pos (Pos)
[2022-05-31] MEDS: NovoLOG INSULIN PUMP SCH ×2 (18:00→19:48)
[2022-05-31] MEDS ORDERED: ACETAMINOPHEN 1,000 MG/100 ML VIAL IV STA (18:27)
[2022-05-31] MEDS: SPIRONOLACTONE 25 MG TAB PO SCH (19:29)
[2022-05-31 19:42] LABS: Base Excess ABG 1.4 mEq/L (-9-1.8); HCO3 ABG 25 mmol/L (19-24); Oxygen Saturation ABG 98.5 % (90-95); PCO2 ABG 35 mmHg (35-46); PO2 ABG 123 mmHg (80-95); pH ABG 7.46 (7.35-7.45)
[2022-05-31 19:43] LABS: Allen Test Pos (Pos)
[2022-05-31] MEDS: ALBUT/IPRATROP 3MG/0.5MG NEB 3 ML VIAL NEB SCH ×2 (20:03→22:57)
[2022-05-31] MEDS ORDERED: LORazepam 0.5 MG TAB PO STA (21:05)
[2022-06-01] MEDS: methylPREDNISolone 40 MG in SYRINGE 0 ML IV SCH ×2 (00:41→08:35)
[2022-06-01] MEDS: ALBUT/IPRATROP 3MG/0.5MG NEB 3 ML VIAL NEB SCH ×2 (04:12→07:02)
--- NOTE | 2022-06-01 05:06 | Electrocardiogram Report ---
Test Reason : Blood Pressure : / mmHG Vent. Rate : 088 BPM Atrial Rate : 088 BPM P-R Int : 154 ms QRS Dur : 072 ms QT Int : 386 ms P-R-T Axes : 023 -33 -08 degrees QTc Int : 467 ms Poor data quality, interpretation may be adversely affected Normal sinus rhythm Left axis deviation Cannot rule out Inferior infarct , age undetermined Abnormal ECG When compared with ECG of 28-MAR-2006 06:24, T wave amplitude has decreased in Anterior leads Confirmed by David Arredondo ([id number]) on 06/01/2022 5:05:36 AM Referred By: Confirmed By:David Arredondo
[2022-06-01 06:15] LABS: Hematocrit (blood only) 41.5 % (34.1-44.9); Hemoglobin 13.5 g/dl (12.0-16.0); Mean Corpuscular Hemoglobin 25.7 pg (25.0-34.0); Mean Corpuscular Hgb Conc 32.5 g/dL (32.0-36.0); Mean Platelet Volume 8.9 fL (9.4-12.3); Platelet Count 175 K/uL (130-400); RDW Coefficient of Variation 17.3 % (11.5-14.5); RDW Standard Deviation 49.5 fL (36.4-46.3); Red Blood Count 5.25 M/uL (3.93-5.22); White Blood Count 8.19 K/ul (4.8-10.8)
[2022-06-01] MEDS ORDERED: traMADol HCL 50 MG TABLET PO STA (06:25)
[2022-06-01 06:47] LABS: BUN Creatinine Ratio 23.5 (10-20); Calcium 9.6 mg/dl (8.5-10.1); Creatinine Clr Calc Pharmacy 80.1 ml/min; Est GFR (African American) 90.2 ml/min; Est GFR (Non-African American) 77.8 ml/min; Magnesium 2.2 mg/dl (1.7-2.4); Potassium 3.7 mmol/L (3.5-5.1)
[2022-06-01 07:23] LABS: Estimated Average Glucose 186 mg/dl; Hemoglobin A1C 8.1 % (4.5-5.6)
[2022-06-01] MEDS: NovoLOG INSULIN PUMP SCH ×2 (08:33→12:26)
--- NOTE | 2022-06-01 08:34 | Pulmonology Progress Note ---
Date of Service June 01, 2022 Assessment & Plan (1) Status asthmaticus: Plan Impression: 62-year-old female with reported history of asthma although her last PFTs show reversible restriction in 2016. She had an exacerbation after exposure to strong smelling perfume and is improved with empiric therapy. Recommendations: 1. Asthma exacerbation: Continue steroids. Can likely transition to prednisone. Will place on Perforomist and budesonide with plans to transition back to Trelegy as an outpatient. Continue Incruse. Discontinue scheduled duo nebs and change them to as needed. 2. We will check IgE level. No evidence of eosinophilia. Unclear if the patient may benefit from Biologics in the outpatient setting. Outpatient assessment of exhaled nitric oxide and consideration for evaluation for vocal cord dysfunction may be reasonable. 3. Sleep disordered breathing: Continue nightly CPAP. 4. Increase activity as tolerated. Suspect we can wean oxygen to off in relatively short order. Will continue to follow with you. Feel free to contact us with questions or concerns Admission and Anticipated Discharge Date Admission Date: May 31, 2022 Subjective Asked by hospitalist to assist in evaluation management this patient admitted with severe asthma exacerbation. History is obtained from discussion with the patient as well as review the electronic medical record. Patient is a 62-year-old female who was diagnosed with asthma back in the 1980s. She initially followed with Dr. Burt, then with Dr. Deng, and most rece ntly with Dr. Ohara at [facility]. She had multiple issues back in the 80s requiring bronchoscopy but then stabilized out and did quite well until 2019. At that point time she was exposed to aerosolized detergents and states that she has never been quite the same. She had her regiment escalated to a Trelegy inhaler a few weeks ago by her outpatient product sales engineer. She believes her last PFTs were performed a couple years ago. We do not have those records available to review. She is never been diagnosed with vocal cord dysfunction. She has been on steroids about 3 times this year. She has been hospitalized in the past but nothing recently. She is never been intubated. She does not monitor her peak flows at home. The patient does have a concomitant history of sleep disordered breathing and uses CPAP at night. She is unclear whether this helps her breathing. The patient states that yesterday at work she was exposed to patient wearing a strong perfume. This resulted in paroxysms of coughing and wheezing. She presented to the emergency room where she was found to be in some respiratory distress. She initially was treated with DuoNeb's however had increasing tachypnea and wheezing and the patient was placed on BiPAP. She did well and was admitted to the hospitalist service. Hospitalist administered Solu-Medrol magnesium and DuoNebs and pulmonary was consulted. This morning the patient states that she is breathing better. She continues to have a hoarse voice which she states happens whenever she is on inhaled steroids. She continues to cough. She tolerated CPAP overnight without difficulty. Review of Systems Review of Systems: Please refer to admission H&P. No additions or deletions Physical Exam Constitutional: WD/WN, vitals as above + obese ENMT: Some rhonchorous breath sounds over the anterior trachea Neck: trachea midline, no thyromegaly Respiratory: normal respiratory effort, lungs clear to auscultation Cardiovascular: RRR, no murmur, no edema Gastrointestinal (Abdomen): normal bowel sounds, soft, nontender, no hepatosplenomegaly Musculoskeletal: Extremities: extremities normal to inspection Skin: no rashes, warm and dry Neurologic: Nonfocal exam Lymphatic: no cervical lymphadenopathy Results & Data Results & Data ([facility]) Vital Signs (Past 12 Hours) Vital Signs Temp Pulse Pulse Pulse Resp BP BP 06/01/22 08:16 36.4 C L 95 H 20 131/79 06/01/22 07:02 90 20 06/01/22 04:12 89 20 06/01/22 03:41 36.3 C L 79 20 127/79 06/01/22 01:53 94 H 06/01/22 00:02 36.3 C L 95 H 20 125/74 05/31/22 23:25 98 H 24 05/31/22 23:11 05/31/22 22:57 93 H 18 Pulse Ox O2 Del Method O2 Flow Rate 06/01/22 08:16 95 Nasal Cannula 2.0 06/01/22 07:02 96 Nasal Cannula 2 06/01/22 04:12 94 Nasal Cannula 2 06/01/22 03:41 99 CPAP 06/01/22 01:53 06/01/22 00:02 97 CPAP 05/31/22 23:25 95 2 05/31/22 23:11 Nasal Cannula 2 05/31/22 22:57 95 Nasal Cannula 2 Diagnostic Findings Prior clinical notes from pulmonary were extensively reviewed. Her last PFTs that we have available in our system were October 2015 which showed an FEV1 of 1.75 L or 69% predicted with an FVC of 2.26 L or 73% predicted and a ratio of 77. There was a 20% improvement in the FVC postbronchodilator. Lung volumes were normal. Diffusion capacity reduced at 55% predicted. Critical Care Results & Data Vital Signs (Past 12 Hours) Vital Signs Temp Pulse Pulse Pulse Resp BP BP 06/01/22 08:16 36.4 C L 95 H 20 131/79 06/01/22 07:02 90 20 06/01/22 04:12 89 20 06/01/22 03:41 36.3 C L 79 20 127/79 06/01/22 01:53 94 H 06/01/22 00:02 36.3 C L 95 H 20 125/74 05/31/22 23:25 98 H 24 05/31/22 23:11 05/31/22 22:57 93 H 18 Pulse Ox O2 Del Method O2 Flow Rate 06/01/22 08:16 95 Nasal Cannula 2.0 06/01/22 07:02 96 Nasal Cannula 2 06/01/22 04:12 94 Nasal Cannula 2 06/01/22 03:41 99 CPAP 06/01/22 01:53 06/01/22 00:02 97 CPAP 05/31/22 23:25 95 2 05/31/22 23:11 Nasal Cannula 2 05/31/22 22:57 95 Nasal Cannula 2 Lab & Micro Results (Past 24 Hours) RBC 5.25 M/uL (3.93-5.22) H 06/01/22 WBC 8.19 K/ul (4.8-10.8) 06/01/22 Hgb 13.5 g/dl (12.0-16.0) 06/01/22 Hct 41.5 % (34.1-44.9) 06/01/22 MCV 79.0 fL (80.0-100.0) L 06/01/22 MCH 25.7 pg (25.0-34.0) 06/01/22 MCHC 32.5 g/dL (32.0-36.0) 06/01/22 RDW Standard Deviation 49.5 fL (36.4-46.3) H 06/01/22 RDW Coefficient of Variation 17.3 % (11.5-14.5) H 06/01/22 Plt Count 175 K/uL (130-400) 06/01/22 MPV 8.9 fL (9.4-12.3) L 06/01/22 Neutrophils (%) (Auto) 79.9 % 05/31/22 Lymphocytes (%) (Auto) 14.9 % 05/31/22 Monocytes # (Auto) 0.27 K/uL (0.24-0.82) 05/31/22 Eosinophils # (Auto) 0.02 K/uL (0-0.50) 05/31/22 Immature Granulocyte % (Auto) 0.8 % 05/31/22 Neutrophils # (Auto) 5.76 K/uL (1.4-6.5) 05/31/22 Lymphocytes # (Auto) 1.07 K/uL (1.2-3.4) L 05/31/22 Monocytes # (Auto) 0.27 K/uL (0.24-0.82) 05/31/22 Eosinophils # (Auto) 0.02 K/uL (0-0.50) 05/31/22 Basophils # (Auto) 0.02 K/uL (0-0.2) 05/31/22 Immature Granulocyte # (Auto) 0.06 K/uL (0.00-0.02) H 05/31 Na 137 mmol/L (136-145) 06/01/22 K 3.7 mmol/L (3.5-5.1) 06/01/22 Cl 104 mmol/L (98-107) 06/01/22 CO2 24 mmol/L (21-32) 06/01/22 Anion Gap 9 (3-11) 06/01/22 BUN 19 mg/dl (6-23) 06/01/22 Creatinine 0.81 mg/dl (0.6-1.2) 06/01/22 Estimated GFR ( Amer) 90.2 ml/min 06/01/22 Estimated GFR (Non-Af Amer) 77.8 ml/min 06/01/22 BUN/Creatinine Ratio 23.5 (10-20) H 06/01/22 Glu 186 mg/dl (70-99(Fasting)) H 06/01/22 Ca 9.6 mg/dl (8.5-10.1) 06/01/22 Mg 2.2 mg/dl (1.7-2.4) 06/01/22 05:51 Calcium Level 9.6 mg/dl (8.5-10.1) 06/01/22 05:51 Venous Blood pH 7.54 (7.36-7.41) H 05/31/22 12:44 Venous Blood Partial Pressure CO2 28 mmHg (38-50) L 05/31/22 12 :44 Venous Blood Partial Pressure O2 44 mmHg 05/31/22 12:44 Venous Blood HCO3 24 mmol/L 05/31/22 12:44 Venous Blood Base Excess 2.3 mEq/L 05/31/22 12:44 Venous Blood Oxygen Saturation 76.0 % 05/31/22 12:44 Arterial Blood pH 7.46 (7.35-7.45) H 05/31/22 19:35 Arterial Blood Partial Pressure CO2 35 mmHg (35-46) 05/31/22 19 :35 Arterial Blood Partial Pressure O2 123 mmHg (80-95) H 05/31/22 19:35 Arterial Blood HCO3 25 mmol/L (19-24) H 05/31/22 19:35 Arterial Blood Base Excess 1.4 mEq/L (-9-1.8) 05/31/22 19:35 Arterial Blood Oxygen Saturation 98.5 % (90-95) H 05/31/22 19:3 5 Blood Gas Oxygen Given 5L 05/31/22 19:35 Blayne Test Pos (Pos) 05/31/22 19:35 Diagnostic Findings (Past 24 Hours) Chest X-Ray 05/31/22 12:39 XR chest 1V portable HISTORY: Shortness of breath. COMPARISON: Chest 11/13/2019. FINDINGS: There are low lung volumes. The cardiac silhouette is normal in size. No new focal lung consolidations to suggest pneumonia. No evidence for pulmonary edema. No pleural effusions. No pneumothorax. IMPRESSION: No acute process. ACT 112: Negative or not required by law. Electronically signed by: Adrien Che M.D. 05/31/2022 1:32 PM I & O Totals 24 Hours 05/31/22 06/01/22 06/02/22 06:59 06:59 06:59 Intake Total 500 / 500 Balance 500 / 500 Cumulative 05/31/22 12:12 thru 06/01/22 06:26 Intake Total 500 Balance 500 RT Ventilator Mngmt (Last Documented) Ventilator Ordered Settings Respiratory Rate 20 06/01/22 08:16 Fraction of Inspired Oxygen 05/31/22 16:09 Ventilator - PT Measurements Respiratory Rate 20 PG Care Time/CCT Total # of Minutes Spent Total Time Spent with Patient: Total time spent is greater than 50% in coordination of care (as documented) at patient's floor/unit and/or counseling patient: Coding Level of Care Code 78358 Inpt Consult Level 4 Diagnoses Status asthmaticus J45.902
[2022-06-01] MEDS ORDERED: FORMOTEROL 20 MCG/2 ML VIAL ONE (09:04)
[2022-06-01] MEDS: FORMOTEROL 20 MCG/2 ML VIAL NEB SCH ×2 (09:11→21:58)
[2022-06-01] MEDS: predniSONE 20 MG TAB PO SCH ×2 (10:15→21:04)
[2022-06-01] MEDS: UMECLIDINIUM BROMIDE 62.5MCG/BLISTER 7 PUFFS/INHALER INH SCH (10:15)
[2022-06-01] MEDS: SPIRONOLACTONE 25 MG TAB PO SCH ×2 (10:16→17:25)
[2022-06-01] MEDS: PANTOprazole 40 MG TAB PO SCH (10:17)
[2022-06-01] MEDS: buPROPion SR 150 MG TABCR PO SCH (10:17)
[2022-06-01] MEDS: CITALOPRAM 40 MG TAB PO SCH (10:17)
[2022-06-01] MEDS ORDERED: IBUPROFEN 200 MG TAB PO STA (11:52)
[2022-06-01] MEDS ORDERED: PHARMACY GLYCEMIC MGMT CONSULT PRN (13:40)
[2022-06-01] MEDS ORDERED: LANTUS PER UNIT CHARGE SQ STA (13:51)
--- NOTE | 2022-06-01 14:22 | Pharmacy Report ---
Pharmacy Glycemic Short Note 2 - Date of Service June 01, 2022 - Glycemic Short BSG Results (Last 24 hours): 05/31/22 06/01/22 06/01/22 17:33 05:51 07:48 Glucose 186 H POC Glucose 173 H 182 H 06/01/22 11:46 Glucose POC Glucose 268 H OUTPATIENT ANTIDIABETIC REGIMEN: * Novolog Medtronic Insulin Pump: see certified histologic technician's note for further dosing details * Basal = 136 units/day * Bolus = Goal range of 70-140 mg/dL with CF of 8 and CR of 4 for most of the day * HbA1c = 8.1% (06/01/22) ASSESSMENT: * 62 yo F admitted yesterday for an acute asthma exacerbation. Pharmacy has been consulted today to assist with inpatient glycemic management. Patient is a type 1 diabetic who is controlled on an insulin pump at home. Patient is ordered a type 2 diet and tolerating it. Was originally started on Methylprednisolone 40 mg IV every 8 hours which was transitioned to Prednisone 20 mg PO BID this morning. * BSGs yesterday were: 145-156-173 mg/dL. Patient remained on home insulin pump. * Steroid effects can be seen today as BSGs have been 182-268 mg/dL. Patient is almost out of insulin with no other supplies here in the hospital. Plan to transition to basal bolus SC insulin this afternoon. Will resume pump prior to discharge. * Basal dose will be split BID to make an easier transition to home pump at discharge. Target daily basal dose ~140 units/day while on steroids for now. Will give 70 units x 1 now followed by a scaled BID regimen that will provide a 20% reduction in home dose today should HS BSG be low this evening. * Bolus regimen will be based off pump settings. PLAN FOR INPATIENT GLYCEMIC CONTROL: * Basal insulin * Lantus 70 units SC x 1 at 1400 today (overlap with insulin pump x 2 hours then remove pump) * Lantus 40-70 units SC BID (see eMAR for more details). * Bolus insulin * NovoLog per scale ACHS or Q6hrs while NPO * Goal Range: Low 110 mg/dL - High 140 mg/dL * Correction Factor: 8 mg/dL/unit * Nutritional / Prandial insulin per carb ratio of 1 unit per 4 grams CHO consumed
--- NOTE | 2022-06-01 14:37 | Hospitalist Progress Note ---
Date of Service June 01, 2022 Assessment & Plan (1) Asthma: Plan: Patient with history of asthma History of sleep apnea on CPAP Reports previous asthma attack after inhalation of cleaning products Current trigger seems to be patient's perfume Denies hospitalization for asthma exacerbation Prior to ED received Solu-Medrol 125, and DuoNeb In the ED received DuoNeb and was started on BiPAP Patient has improved since last night Currently on nasal cannula Pulm recs noted Continue prednisone and nebs as ordered by Agricultural Service Technician Needs outpatient follow up with her Agricultural Service Technician Avoid triggers (2) Diabetes: Plan: Patient with history of diabetes mellitus type 1, on insulin pump Glycemic pharm consult Insulin regimen changed from pump to subcut Per patient, her last A1c was 7.9%. A1c today is 8.1 Obesity Lifestyle modification counseling History of Carney's esophagus PPI Depression Cont. home meds Admission and Anticipated Discharge Date Admission Date: May 31, 2022 Subjective Patient seen and examined Reports dry cough, chest tightness, exertional dyspnea Reports feeling better today compared to yesterday. Denied any fevers, chills, nausea, vomiting, abd pain, diarrhea, constipation, dysuria, freq, urgency Reports headache Physical Exam Constitutional: + well hydrated and + obese; no acute distress Eyes: PERRL, conjunctivae normal, anicteric sclerae ENMT: external ear and nose normal, oropharynx normal Respiratory: normal respiratory effort, lungs clear to auscultation Cardiovascular: Rate/Rhythm: regular rate and regular rhythm S1 S2 Gastrointestinal (Abdomen): normal bowel sounds, soft, nontender, no hepatosplenomegaly Musculoskeletal: Trace pedal edema Neurologic: PERRL, EOMI, accommodation nl, no face palsy, no dysarthria Psychiatric: A+Ox3, euthymic affect Results & Data Results & Data ([facility]) Vital Signs (Past 12 Hours) Vital Signs Temp Pulse Pulse Pulse Resp BP BP 06/01/22 11:39 36.4 C L 100 H 20 128/74 06/01/22 10:57 06/01/22 10:57 87 06/01/22 09:11 101 H 20 06/01/22 08:16 36.4 C L 95 H 20 131/79 06/01/22 07:02 90 20 06/01/22 04:12 89 20 06/01/22 03:41 36.3 C L 79 20 127/79 Pulse Ox O2 Del Method O2 Flow Rate 06/01/22 11:39 96 Nasal Cannula 2.0 06/01/22 10:57 Nasal Cannula 2 06/01/22 10:57 06/01/22 09:11 96 Nasal Cannula 2 06/01/22 08:16 95 Nasal Cannula 2.0 06/01/22 07:02 96 Nasal Cannula 2 06/01/22 04:12 94 Nasal Cannula 2 06/01/22 03:41 99 CPAP Laboratory Results Abnormal lab results 05/31/22 05/31/22 05/31/22 Range/Units 16:10 17:33 19:35 RBC (3.93-5.22) M/uL MCV (80.0-100.0) fL RDW Std Deviation (36.4-46.3) fL RDW Coeff of Jerome (11.5-14.5) % MPV (9.4-12.3) fL ABG pH 7.46 H (7.35-7.45) ABG pCO2 33 L (35-46) mmHg ABG pO2 137 H 123 H (80-95) mmHg ABG HCO3 25 H (19-24) mmol/L ABG O2 Saturation 98.9 H 98.5 H (90-95) % BUN/Creatinine Ratio (10-20) Glucose (70-99(Fasting)) mg/dl POC Glucose 173 H (70-99) mg/dl Hemoglobin A1c (4.5-5.6) % 06/01/22 06/01/22 06/01/22 Range/Units 05:51 05:51 05:51 RBC 5.25 H (3.93-5.22) M/uL MCV 79.0 L (80.0-100.0) fL RDW Std Deviation 49.5 H (36.4-46.3) fL RDW Coeff of Jerome 17.3 H (11.5-14.5) % MPV 8.9 L (9.4-12.3) fL ABG pH (7.35-7.45) ABG pCO2 (35-46) mmHg ABG pO2 (80-95) mmHg ABG HCO3 (19-24) mmol/L ABG O2 Saturation (90-95) % BUN/Creatinine Ratio 23.5 H (10-20) Glucose 186 H (70-99(Fasting)) mg/dl POC Glucose (70-99) mg/dl Hemoglobin A1c 8.1 H (4.5-5.6) % 06/01/22 06/01/22 Range/Units 07:48 11:46 RBC (3.93-5.22) M/uL MCV (80.0-100.0) fL RDW Std Deviation (36.4-46.3) fL RDW Coeff of Jerome (11.5-14.5) % MPV (9.4-12.3) fL ABG pH (7.35-7.45) ABG pCO2 (35-46) mmHg ABG pO2 (80-95) mmHg ABG HCO3 (19-24) mmol/L ABG O2 Saturation (90-95) % BUN/Creatinine Ratio (10-20) Glucose (70-99(Fasting)) mg/dl POC Glucose 182 H 268 H (70-99) mg/dl Hemoglobin A1c (4.5-5.6) %
[2022-06-01] MEDS: INSULIN ASPART PER UNIT SC SCH ×3 (16:13→21:04)
[2022-06-01] MEDS: BUDESONIDE 0.5 MG/2 ML VIAL (PULMICORT) NEB SCH (19:13)
[2022-06-01] MEDS: ALBUT/IPRATROP 3MG/0.5MG NEB 3 ML VIAL NEB PRN (19:13)
[2022-06-01] MEDS: LORazepam 0.5 MG TAB PO PRN (21:03)
[2022-06-01] MEDS: LANTUS PER UNIT CHARGE SQ SCH (21:24)
[2022-06-02] MEDS ORDERED: INSULIN ASPART PER UNIT SC ONE
[2022-06-02 07:08] LABS: Hemoglobin 13.6 g/dl (12.0-16.0); Mean Corpuscular Hemoglobin 25.9 pg (25.0-34.0); Mean Corpuscular Hgb Conc 32.4 g/dL (32.0-36.0); Mean Platelet Volume 9.3 fL (9.4-12.3); Platelet Count 196 K/uL (130-400); RDW Standard Deviation 50.9 fL (36.4-46.3); Red Blood Count 5.25 M/uL (3.93-5.22); White Blood Count 12.12 K/ul (4.8-10.8)
[2022-06-02] MEDS: BUDESONIDE 0.5 MG/2 ML VIAL (PULMICORT) NEB SCH ×2 (07:14→19:57)
[2022-06-02] MEDS: FORMOTEROL 20 MCG/2 ML VIAL NEB SCH ×2 (07:14→19:57)
[2022-06-02] MEDS: SPIRONOLACTONE 25 MG TAB PO SCH ×2 (07:38→17:55)
[2022-06-02] MEDS: predniSONE 20 MG TAB PO SCH ×2 (07:38→20:57)
[2022-06-02] MEDS: CITALOPRAM 40 MG TAB PO SCH (07:38)
[2022-06-02] MEDS: UMECLIDINIUM BROMIDE 62.5MCG/BLISTER 7 PUFFS/INHALER INH SCH (07:38)
[2022-06-02] MEDS: buPROPion SR 150 MG TABCR PO SCH (07:39)
[2022-06-02] MEDS: PANTOprazole 40 MG TAB PO SCH (07:39)
[2022-06-02 08:19] LABS: BUN Creatinine Ratio 25.3 (10-20); Calcium 9.5 mg/dl (8.5-10.1); Creatinine Clr Calc Pharmacy 68.6 ml/min; Est GFR (African American) 74.4 ml/min; Est GFR (Non-African American) 64.2 ml/min; Potassium 4.5 mmol/L (3.5-5.1)
[2022-06-02] MEDS: LANTUS PER UNIT CHARGE SQ SCH ×2 (08:55→20:56)
[2022-06-02] MEDS: INSULIN ASPART PER UNIT SC SCH ×4 (08:55→20:55)
[2022-06-02] MEDS: ALBUT/IPRATROP 3MG/0.5MG NEB 3 ML VIAL NEB PRN ×3 (09:25→18:30)
--- NOTE | 2022-06-02 11:15 | Pulmonology Progress Note ---
Date of Service June 02, 2022 Assessment & Plan (1) Status asthmaticus: Plan Impression: 62-year-old female with reported history of asthma although her last PFTs show reversible restriction in 2016. She had an exacerbation after exposure to strong smelling perfume and is improved with empiric therapy. She suffered an additional event last night when exposed to some cleaning supplies in the bathroom but appears to be improving. Recommendations: 1. Asthma exacerbation: Continue prednisone. Continue Perforomist and budesonide with plans to transition back to [facility] as an outpatient. Continue Incruse. Rescue DuoNebs as needed 2. Await IgE level. No evidence of eosinophilia. 3. Sleep disordered breathing: Continue nightly CPAP. 4. The patient complains of severe symptoms but is actually moving good air without any evidence of wheezing. She is lost her voice and this raises the possibility of potential laryngeal spasm associated with strong chemicals. She may have a component of vocal cord dysfunction as well as concomitant asthma. Would recommend outpatient speech therapy evaluation. Will continue to follow with you. Feel free to contact us with questions or concerns Admission and Anticipated Discharge Date Admission Date: May 31, 2022 Subjective Patient seen and examined. EMR reviewed. The patient reports that she was in the bathroom and was exposed to her whenever cleaning supplies were used to clean the bathroom. This resulted in an episode of bronchospasm or laryngeal spasm. She required rescue medications and CPAP/BiPAP. She states she is improved this morning. She continues to have issues with voice and coughing. She does feel improved. She does feel the nebulizers are helpful. Review of Systems Review of Systems: All systems reviewed & are unremarkable except as noted in Subjective Physical Exam Constitutional: WD/WN, vitals as above + obese Neck: trachea midline, no thyromegaly Respiratory: normal respiratory effort, lungs clear to auscultation Cardiovascular: RRR, no murmur, no edema Gastrointestinal (Abdomen): normal bowel sounds, soft, nontender, no hepatosplenomegaly Musculoskeletal: Extremities: extremities normal to inspection Skin: no rashes, warm and dry Lymphatic: no cervical lymphadenopathy Results & Data Results & Data ([facility]) Vital Signs (Past 12 Hours) Vital Signs Temp Pulse Pulse Resp BP BP Pulse Ox 06/02/22 09:30 78 20 97 06/02/22 09:27 78 20 97 06/02/22 07:34 36.6 C 69 22 122/78 98 10/01/22 07:16 72 16 97 06/02/22 00:00 78 06/01/22 23:31 36.7 C 73 20 133/78 98 O2 Del Method O2 Flow Rate 06/02/22 09:30 2 06/02/22 09:27 BiPAP 2 06/02/22 07:34 Nasal Cannula 2 06/02/22 07:16 Nasal Cannula 2 06/02/22 00:00 06/01/22 23:31 BiPAP Laboratory Results 06/02/22 06:43 06/02/22 06:43 IgE level pending Diagnostic Findings No new imaging PG Care Time/CCT Total # of Minutes Spent Total Time Spent with Patient: Total time spent is greater than 50% in coordination of care (as documented) at patient's floor/unit and/or counseling patient: Coding Level of Care Code 45137 Subseq Hosp Care Lvl 2 Diagnoses Status asthmaticus J45.902
[2022-06-02] MEDS ORDERED: LANTUS PER UNIT CHARGE SQ ONE (13:00)
--- NOTE | 2022-06-02 14:13 | Hospitalist Progress Note ---
Date of Service June 02, 2022 Assessment & Plan (1) Asthma: Plan: Patient with history of asthma History of sleep apnea on CPAP Reports previous asthma attack after inhalation of cleaning products Current trigger seems to be patient's perfume Denies hospitalization for asthma exacerbation Prior to ED received Solu-Medrol 125, and DuoNeb In the ED received DuoNeb and was started on BiPAP Currently on nasal cannula 2l/min Pulm recs noted No perfumes or system software developer in room Continue prednisone Continue nebs prn Needs outpatient follow up with her Commissary Manager (2) Diabetes: Plan: Patient with history of diabetes mellitus type 1, on insulin pump Home insulin pump on hold Continue insulin sq per protocol Per patient, her last A1c was 7.9%. A1c on 06/01/22 is 8.1 Obesity Lifestyle modification counseling History of Carney's esophagus PPI Depression Cont. home meds Admission and Anticipated Discharge Date Admission Date: May 31, 2022 Subjective Patient seen and examined Reports cough and scant sputum today Reported an episode of bronchospasm this AM after exposure to cleaning agents in the bathroom and needed CPAP and nebs. [place] better afterwards Still has some dyspnea on exertion Denied any fevers, chills, nausea, vomiting, abd pain, diarrhea, constipation, dysuria, freq, urgency Physical Exam Constitutional: + well hydrated and + obese; no acute distress Eyes: PERRL, conjunctivae normal, anicteric sclerae ENMT: external ear and nose normal, oropharynx normal Respiratory: normal respiratory effort, lungs clear to auscultation Cardiovascular: Rate/Rhythm: regular rate and regular rhythm S1 S2 Gastrointestinal (Abdomen): normal bowel sounds, soft, nontender, no hepatosplenomegaly Neurologic: PERRL, EOMI, accommodation nl, no face palsy, no dysarthria Psychiatric: A+Ox3, euthymic affect Results & Data Results & Data ([facility]) Vital Signs (Past 12 Hours) Vital Signs Temp Pulse Pulse Resp BP Pulse Ox O2 Del Method 06/02/22 12:26 80 16 95 Nasal Cannula 06/02/22 08:00 Nasal Cannula 06/02/22 08:00 65 06/02/22 11:35 36.9 C 74 20 133/81 97 Room Air 06/02/22 09:30 78 20 97 06/02/22 09:27 78 20 97 BiPAP 06/02/22 07:34 36.6 C 69 22 122/78 98 Nasal Cannula 06/02/22 07:16 72 16 97 Nasal Cannula O2 Flow Rate 06/02/22 12:26 2 06/02/22 08:00 2 06/02/22 08:00 06/02/22 11:35 06/02/22 09:30 2 06/02/22 09:27 2 06/02/22 07:34 2 06/02/22 07:16 2 Laboratory Results Abnormal lab results 06/01/22 06/01/22 06/02/22 Range/Units 16:35 20:01 00:22 WBC (4.8-10.8) K/ul RBC (3.93-5.22) M/uL RDW Std Deviation (36.4-46.3) fL RDW Coeff of Jerome (11.5-14.5) % MPV (9.4-12.3) fL Sodium (136-145) mmol/L BUN (6-23) mg/dl BUN/Creatinine Ratio (10-20) Glucose (70-99(Fasting)) mg/dl POC Glucose 189 H 267 H 186 H (70-99) mg/dl 06/02/22 06/02/22 06/02/22 Range/Units 06:43 06:43 07:33 WBC 12.12 H (4.8-10.8) K/ul RBC 5.25 H (3.93-5.22) M/uL RDW Std Deviation 50.9 H (36.4-46.3) fL RDW Coeff of Jerome 18.0 H (11.5-14.5) % MPV 9.3 L (9.4-12.3) fL Sodium 135 L (136-145) mmol/L BUN 24 H (6-23) mg/dl BUN/Creatinine Ratio 25.3 H (10-20) Glucose 235 H (70-99(Fasting)) mg/dl POC Glucose 223 H (70-99) mg/dl 06/02/22 Range/Units 11:38 WBC (4.8-10.8) K/ul RBC (3.93-5.22) M/uL RDW Std Deviation (36.4-46.3) fL RDW Coeff of Jerome (11.5-14.5) % MPV (9.4-12.3) fL Sodium (136-145) mmol/L BUN (6-23) mg/dl BUN/Creatinine Ratio (10-20) Glucose (70-99(Fasting)) mg/dl POC Glucose 281 H (70-99) mg/dl
[2022-06-02] MEDS: ACETAMINOPHEN 325 MG TAB PO PRN (20:54)
[2022-06-02] MEDS: LORazepam 0.5 MG TAB PO PRN (20:55)
[2022-06-03] MEDS: BUDESONIDE 0.5 MG/2 ML VIAL (PULMICORT) NEB SCH ×2 (07:08→20:40)
[2022-06-03] MEDS: FORMOTEROL 20 MCG/2 ML VIAL NEB SCH ×2 (07:08→20:40)
[2022-06-03 07:30] LABS: Hematocrit (blood only) 42.2 % (34.1-44.9); Hemoglobin 13.6 g/dl (12.0-16.0); Mean Corpuscular Hemoglobin 25.8 pg (25.0-34.0); Mean Corpuscular Hgb Conc 32.2 g/dL (32.0-36.0); Mean Corpuscular Volume 80.1 fL (80.0-100.0); Mean Platelet Volume 9.3 fL (9.4-12.3); Platelet Count 185 K/uL (130-400); RDW Coefficient of Variation 17.6 % (11.5-14.5); RDW Standard Deviation 50.4 fL (36.4-46.3); Red Blood Count 5.27 M/uL (3.93-5.22); White Blood Count 9.94 K/ul (4.8-10.8)
[2022-06-03 08:04] LABS: BUN Creatinine Ratio 27.9 (10-20); Calcium 9.9 mg/dl (8.5-10.1); Creatinine Clr Calc Pharmacy 74.9 ml/min; Est GFR (African American) 83.9 ml/min; Est GFR (Non-African American) 72.4 ml/min; Potassium 4.3 mmol/L (3.5-5.1)
[2022-06-03] MEDS: INSULIN ASPART PER UNIT SC SCH ×4 (09:34→21:06)
[2022-06-03] MEDS: LANTUS PER UNIT CHARGE SQ SCH ×2 (09:35→21:06)
[2022-06-03] MEDS: buPROPion SR 150 MG TABCR PO SCH (09:35)
[2022-06-03] MEDS: CITALOPRAM 40 MG TAB PO SCH (09:35)
[2022-06-03] MEDS: predniSONE 20 MG TAB PO SCH ×2 (09:36→21:13)
[2022-06-03] MEDS: PANTOprazole 40 MG TAB PO SCH (09:36)
[2022-06-03] MEDS: UMECLIDINIUM BROMIDE 62.5MCG/BLISTER 7 PUFFS/INHALER INH SCH (09:36)
[2022-06-03] MEDS: SPIRONOLACTONE 25 MG TAB PO SCH ×2 (09:36→16:58)
[2022-06-03] MEDS ORDERED: BENZONATATE 100 MG CAPSULE PO PRN (09:49)
[2022-06-03] MEDS: ALBUT/IPRATROP 3MG/0.5MG NEB 3 ML VIAL NEB PRN (09:50)
[2022-06-03] MEDS: guaiFENesin 600 MG TABCR PO SCH ×2 (10:52→21:13)
--- NOTE | 2022-06-03 11:00 | Pulmonology Progress Note ---
Date of Service June 03, 2022 Assessment & Plan (1) Status asthmaticus: Plan Impression: 62-year-old female with reported history of asthma although her last PFTs show reversible restriction in 2016. She had an exacerbation after exposure to strong smelling perfume and is improved with empiric therapy. She is making some slow progress but continues to have episodes of shortness of breath. She has minimal wheezing and her voice remains severely hoarse raising the possibility of vocal cord dysfunction Recommendations: 1. Asthma exacerbation: Continue prednisone. Continue Perforomist and budesonide with plans to transition back to [facility] as an outpatient. Continue Incruse. Rescue DuoNebs as needed 2. Await IgE level. No evidence of eosinophilia. 3. Sleep disordered breathing: Continue nightly CPAP. 4. The patient complains of severe symptoms but is actually moving good air without any evidence of wheezing. Based on her symptom description and the significant voice changes she has, this raises the possibility of potential laryngeal spasm associated with strong chemicals. She may have a component of vocal cord dysfunction as well as concomitant asthma. Would recommend outpatient speech therapy evaluation. Will continue to follow with you. Feel free to contact us with questions or concerns Admission and Anticipated Discharge Date Admission Date: May 31, 2022 Subjective Patient seen and examined. EMR reviewed. The patient developed some shortness of breath when being up to the bathroom this morning. She received breathing treatments and was put back on oxygen and she states she feels better. She feels she is slowly improving. She continues to have significant weakness in her voice and hoarseness. Review of Systems Review of Systems: All systems reviewed & are unremarkable except as noted in Subjective Physical Exam Constitutional: WD/WN, vitals as above + obese Neck: trachea midline, no thyromegaly Respiratory: normal respiratory effort, lungs clear to auscultation Cardiovascular: RRR, no murmur, no edema Gastrointestinal (Abdomen): normal bowel sounds, soft, nontender, no hepatosplenomegaly Musculoskeletal: Extremities: extremities normal to inspection Skin: no rashes, warm and dry Lymphatic: no cervical lymphadenopathy Results & Data Results & Data ([facility]) Vital Signs (Past 12 Hours) Vital Signs Temp Pulse Pulse Resp BP Pulse Ox O2 Del Method 06/03/22 09:51 81 20 98 Nasal Cannula 06/03/22 08:04 36.6 C 73 16 125/76 94 Room Air 06/03/22 07:09 65 16 97 Nasal Cannula 06/03/22 00:00 68 06/03/22 02:21 36.6 C 73 22 122/82 93 Nasal Cannula 06/02/22 23:24 36.6 C 69 20 146/77 H 99 BiPAP 06/02/22 23:05 68 20 96 O2 Flow Rate 06/03/22 09:51 2 06/03/22 08:04 06/03/22 07:09 2 06/03/22 00:00 06/03/22 02:21 2 06/02/22 23:24 06/02/22 23:05 2 Laboratory Results 06/03/22 06:49 06/03/22 06:49 Diagnostic Findings No new films PG Care Time/CCT Total # of Minutes Spent Total Time Spent with Patient: Total time spent is greater than 50% in coordination of care (as documented) at patient's floor/unit and/or counseling patient: Coding Level of Care Code 07289 Subseq Hosp Care Lvl 2 Diagnoses Status asthmaticus J45.902
--- NOTE | 2022-06-03 11:49 | Hospitalist Progress Note ---
Date of Service June 03, 2022 Assessment & Plan (1) Asthma: Plan: Patient with history of asthma History of sleep apnea on CPAP Reports previous asthma attack after inhalation of cleaning products Current trigger seems to be patient's perfume Denies hospitalization for asthma exacerbation Prior to ED received Solu-Medrol 125, and DuoNeb In the ED received DuoNeb and was started on BiPAP Pulm recs noted No perfumes or supervisor telephone information in room Continue prednisone Continue nebs: duoneb and pulmicort prn Has been intermittently on nasal cannula. Will need 2 step on dc Guaifenesin 600mg bid Continue supportive care Needs outpatient follow up with her Barrel Straightener (2) Diabetes: Plan: Patient with history of diabetes mellitus type 1, on insulin pump Home insulin pump on hold Continue insulin sq per protocol Per patient, her last A1c was 7.9%. A1c on 06/01/22 is 8.1 Obesity Lifestyle modification counseling History of Carney's esophagus PPI Depression Cont home meds Admission and Anticipated Discharge Date Admission Date: May 31, 2022 Subjective Patient seen and examined Reports exertional dyspnea with mild activity Has cough and occasional chest tightness Denied any fevers, chills, nausea, vomiting, abd pain, diarrhea, constipation, dysuria, freq, urgency Physical Exam Constitutional: + well hydrated and + obese; no acute distress Eyes: PERRL, conjunctivae normal, anicteric sclerae ENMT: external ear and nose normal, oropharynx normal Respiratory: normal respiratory effort, lungs clear to auscultation Cardiovascular: Rate/Rhythm: regular rate and regular rhythm S1 S2 Gastrointestinal (Abdomen): normal bowel sounds, soft, nontender, no hepatosplenomegaly Musculoskeletal: no cyanosis or clubbing, extremities motor strength 5/5 Neurologic: PERRL, EOMI, accommodation nl, no face palsy, no dysarthria Psychiatric: A+Ox3, euthymic affect Results & Data Results & Data ([facility]) Vital Signs (Past 12 Hours) Vital Signs Temp Pulse Pulse Resp BP Pulse Ox O2 Del Method 06/03/22 11:21 36.3 C L 76 16 122/78 94 Room Air 06/03/22 09:51 81 20 98 Nasal Cannula 06/03/22 08:04 36.6 C 73 16 125/76 94 Room Air 06/03/22 07:09 65 16 97 Nasal Cannula 06/03/22 00:00 68 10/02/22 02:21 36.6 C 73 22 122/82 93 Nasal Cannula O2 Flow Rate 06/03/22 11:21 06/03/22 09:51 2 06/03/22 08:04 06/03/22 07:09 2 06/03/22 00:00 06/03/22 02:21 2 Laboratory Results Abnormal lab results 06/02/22 06/02/22 06/03/22 Range/Units 16:27 20:15 06:49 RBC 5.27 H (3.93-5.22) M/uL RDW Std Deviation 50.4 H (36.4-46.3) fL RDW Coeff of Jerome 17.6 H (11.5-14.5) % MPV 9.3 L (9.4-12.3) fL BUN (6-23) mg/dl BUN/Creatinine Ratio (10-20) Glucose (70-99(Fasting)) mg/dl POC Glucose 186 H 212 H (70-99) mg/dl 06/03/22 06/03/22 06/03/22 Range/Units 06:49 07:55 11:55 RBC (3.93-5.22) M/uL RDW Std Deviation (36.4-46.3) fL RDW Coeff of Jerome (11.5-14.5) % MPV (9.4-12.3) fL BUN 24 H (6-23) mg/dl BUN/Creatinine Ratio 27.9 H (10-20) Glucose 145 H (70-99(Fasting)) mg/dl POC Glucose 136 H 189 H (70-99) mg/dl
[2022-06-03] MEDS: ACETAMINOPHEN 325 MG TAB PO PRN (16:58)
[2022-06-03] MEDS: LORazepam 0.5 MG TAB PO PRN (21:17)
[2022-06-04] MEDS: FORMOTEROL 20 MCG/2 ML VIAL NEB SCH (07:20)
[2022-06-04] MEDS: BUDESONIDE 0.5 MG/2 ML VIAL (PULMICORT) NEB SCH (07:20)
[2022-06-04] MEDS: predniSONE 20 MG TAB PO SCH (08:57)
[2022-06-04] MEDS: CITALOPRAM 40 MG TAB PO SCH (08:57)
[2022-06-04] MEDS: SPIRONOLACTONE 25 MG TAB PO SCH (08:57)
[2022-06-04] MEDS: INSULIN ASPART PER UNIT SC SCH ×2 (08:57→13:08)
[2022-06-04] MEDS: PANTOprazole 40 MG TAB PO SCH (08:57)
[2022-06-04] MEDS: buPROPion SR 150 MG TABCR PO SCH (08:57)
[2022-06-04] MEDS: UMECLIDINIUM BROMIDE 62.5MCG/BLISTER 7 PUFFS/INHALER INH SCH (08:57)
[2022-06-04] MEDS: guaiFENesin 600 MG TABCR PO SCH (08:57)
[2022-06-04] MEDS: LANTUS PER UNIT CHARGE SQ SCH (08:58)
--- NOTE | 2022-06-04 09:41 | Pharmacy Report ---
Pharmacy Glycemic Short Note 2 - Date of Service June 04, 2022 - Glycemic Short BSG Results (Last 24 hours): 06/03/22 06/03/22 06/03/22 11:55 16:54 20:02 POC Glucose 189 H 125 H 202 H 06/04/22 07:31 POC Glucose 76 OUTPATIENT ANTIDIABETIC REGIMEN: * Novolog Medtronic Insulin Pump: see certified low vision therapist's note for further dosing details * Basal = 136 units/day * Bolus = Goal range of 70-140 mg/dL with CF of 8 and CR of 4 for most of the day * HbA1c = 8.1% (06/01/22) ASSESSMENT: 06/04/22: * BSGs labile, but mostly reasonably well controlled over past 48 hours * Requiring ~200-240 units of insulin/day * Fasting BSG of 76 mg/dL this morning - will reduce basal insulin today * Continues on prednisone 20 mg PO BID Background: * 62 yo F admitted yesterday for an acute asthma exacerbation. Pharmacy has been consulted today to assist with inpatient glycemic management. Patient is a type 1 diabetic who is controlled on an insulin pump at home. Patient is ordered a type 2 diet and tolerating it. Was originally started on Methylprednisolone 40 mg IV every 8 hours which was transitioned to Prednisone 20 mg PO BID this morning. * BSGs yesterday were: 145-156-173 mg/dL. Patient remained on home insulin pump. * Steroid effects can be seen today as BSGs have been 182-268 mg/dL. Patient is almost out of insulin with no other supplies here in the hospital. Plan to transition to basal bolus SC insulin this afternoon. Will resume pump prior to discharge. * Basal dose will be split BID to make an easier transition to home pump at discharge. Target daily basal dose ~140 units/day while on steroids for now. Will give 70 units x 1 now followed by a scaled BID regimen that will provide a 20% reduction in home dose today should HS BSG be low this evening. * Bolus regimen will be based off pump settings. PLAN FOR INPATIENT GLYCEMIC CONTROL: * Basal insulin * Lantus 60-70 units SC BID * Bolus insulin * NovoLog per scale ACHS or Q6hrs while NPO * Goal Range: Low 110 mg/dL - High 140 mg/dL * Correction Factor: 10 mg/dL/unit * Nutritional / Prandial insulin per carb ratio of 1 unit per 2.5 grams CHO consumed
--- NOTE | 2022-06-04 10:18 | Pulmonology Progress Note ---
Date of Service June 04, 2022 Assessment & Plan (1) Status asthmaticus: (2) Asthma: (3) CAMERON on CPAP: Plan Impression: 62-year-old female with reported history of asthma although her last PFTs show reversible restriction in 2016. She had an exacerbation after exposure to strong smelling perfume and is improved with empiric therapy. She is making some slow progress but continues to have episodes of shortness of breath. She has minimal wheezing and her voice remains severely hoarse raising the possibility of vocal cord dysfunction Chest x-ray 05/31/2022 personally reviewed: Portable film, fair inspiratory effort, bilateral costophrenic and cardiophrenic angles are clean, no clear lung infiltrate appreciated -- Asthma exacerbation Was recently given Trelegy inhaler approximately 3 weeks ago Prior to that she was on Asmanex and Wixela. Covid-19 NAAT negative --CAMERON Continue with CPAP Plan: Continue with Trelegy 200 on discharge Follow-up IgE level as an outpatient. Consideration for immunotherapy if per symptoms are not controlled even with this Guaifenesin-DM to be used for chest congestion as well as bouts of coughing Avoid any triggers which make her asthma worse Tapering prednisone 40 mg for 3 days followed by 20 mg for 4 days. Follow-up with outpatient clinical documentation spec 2 step prior to discharge Case was discussed with Dr. Manuel Please note the above document was generated using voice recognition software. It may contain grammatical, syntax or spelling errors.Any formal questions or concerns about the content, text or information contained within the body of this dictation should be directly addressed to the provider for clarification. Admission and Anticipated Discharge Date Admission Date: May 31, 2022 Subjective Patient seen and examined at bedside. Case discussed with outgoing clinical documentation spec Patient states she is feeling better compared to when she came to the hospital Denies any chest pain, shortness of breath is significantly improved Does cough when she takes deep breath in. No nausea or vomiting, fair appetite Review of Systems Review of Systems: All systems reviewed & are unremarkable except as noted in Subjective Physical Exam Physical Exam: Constitutional: No acute distress HEENT: EOMI, PERRLA Respiratory system: Good air entry bilaterally, no wheeze, rhonchi, no crackles CVS: S1-S2 positive, no murmurs or gallops Abdomen: Soft, nontender, nondistended, positive bowel sounds x4, obese Extremities: +2 pulses bilaterally radialis/ dorsalis pedis, no cyanosis, no edema Neuro: Awake alert oriented x3 Psych: Normal mood and affect G/U: No Browning Skin: no rashes, warm and dry Lymphatic: no cervical or axillary lymphadenopathy Results & Data Results & Data ([facility]) Vital Signs (Past 12 Hours) Vital Signs Temp Pulse Pulse Resp BP Pulse Ox O2 Del Method 06/04/22 07:35 36.5 C 68 18 125/81 99 Room Air 06/04/22 07:21 70 16 97 Room Air 06/04/22 00:00 71 06/04/22 02:30 67 20 94 06/04/22 03:02 36.7 C 68 18 131/84 95 BiPAP 06/03/22 22:59 73 14 95 06/03/22 23:01 73 20 130/87 95 BiPAP O2 Flow Rate FiO2 06/04/22 07:35 06/04/22 07:21 06/04/22 00:00 06/04/22 02:30 0 21 06/04/22 03:02 06/03/22 22:59 0 21 06/03/22 23:01 Laboratory Results 06/03/22 06:49 06/03/22 06:49 PG Care Time/CCT Total # of Minutes Spent Total Time Spent with Patient: Total time spent is greater than 50% in coordination of care (as documented) at patient's floor/unit and/or counseling patient: Coding Level of Care Code 06073 Subseq Hosp Care Lvl 2 Diagnoses Status asthmaticus J45.902 Asthma J45.909 CAMERON on CPAP G47.33; Z99.89
--- NOTE | 2022-06-04 13:11 | Discharge Summary ---
Discharge Summary Date of Service June 04, 2022 Notes For Next Care Provider Patient needs follow-up with canvas shop laborer Medication Changes From Visit Discharge on prednisone 40 mg daily for 3 days and then 30 mg daily for 4 days and then stop. Continue home medication and home inhalers including Trelegy Guaifenesin tabs for cough Admission HPI Per Admitting Provider 62-year-old female with history of type 1 diabetes mellitus, with insulin pump, severe persistent asthma, hypertension, Carney's esophagus, obesity with BMI of 40, CAMERON on CPAP presents with shortness of breath. 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 Patient reports that happened to her before with inhalation of cleaning products. At that time she reports she presented to the hospital but did not have to be hospitalized. Prior to coming to the ED patient received Solu-Medrol 125 mg, and DuoNeb. In the ED she received DuoNeb again, and also started on BiPAP. She appears fairly comfortable on BiPAP, she is alert and oriented and answering questions appropriately. Denies feeling ill or sick in any way prior to this incident. Denies any history of fevers chills chest pain. She denies sick contacts and reports wearing a mask in the clinic. Reports being vaccinated for COVID. Denies any abdominal pain, nausea or vomiting. Her significant other is present at the bedside and confirms the history. Admission Exam Per Admitting Provider Constitutional: WD/WN, vitals as above (obese F on bipap) Eyes: PERRL, conjunctivae normal, anicteric sclerae ENMT: external ear and nose normal, oropharynx normal Neck: + thick neck Respiratory: + cough Auscultation: + wheezes (mild e xp., on bipap) Cardiovascular: RRR, no murmur, no edema Chest (Breasts): Chest: normal inspection of chest Gastrointestinal (Abdomen): normal bowel sounds, soft, nontender, no hepatosplenomegaly Musculoskeletal: no cyanosis or clubbing, extremities motor strength 5/5 Skin: no rashes, warm and dry Neurologic: PERRL, EOMI, accommodation nl, no face palsy, no dysarthria Psychiatric: A+Ox3, euthymic affect Genitourinary: no CVA tenderness Principal Dx & Hospital Course #1 = Principal Diagnosis (1) Asthma: Patient with history of asthma History of sleep apnea on CPAP Reports previous asthma attack after inhalation of cleaning products Current trigger seems to be patient's perfume Denies hospitalization for asthma exacerbation CXR did not show any acute abnormalities In the ED, she received DuoNeb, solumedrol and was started on BiPAP Was comanaged with Urinalysis Technician Solumedrol was changed to prednisone Patient required nasal oxygen briefly Symptoms improved 2 step today did not show any oxygen requirement Discharged on prednisone 40mg daily for 3 days then 30mg daily for 4 days and then stop Patient to follow up with her canvas shop laborer outpatient Avoid triggers (2) Diabetes: Patient with history of diabetes mellitus type 1, on insulin pump Continue insulin pump. Patient to monitor closely while on prednisone and adjust as discussed when needed Per patient, her last A1c was 7.9%. A1c on 06/01/22 is 8.1 Discharge Exam Constitutional + well hydrated and + obese; no acute distress Eyes PERRL, conjunctivae normal, anicteric sclerae ENMT external ear and nose normal, oropharynx normal Respiratory normal respiratory effort, lungs clear to auscultation Cardiovascular Rate/Rhythm: regular rate and regular rhythm S1 S2 Gastrointestinal (Abdomen) normal bowel sounds, soft, nontender, no hepatosplenomegaly Musculoskeletal no cyanosis or clubbing, extremities motor strength 5/5 Neurologic PERRL, EOMI, accommodation nl, no face palsy, no dysarthria Psychiatric A+Ox3, euthymic affect Updated Medication List Medication Instructions Recorded Confirmed Type albuterol sulfate 90 mcg/actuation 2 puff inhalation Q4 PRN Shortness 09/20/18 11/13/19 History aerosol inhaler (Ventolin HFA) Of Breath Or Wheezing bupropion HCl 150 mg tablet,12 hr 150 mg PO QAM 09/20/18 11/13/19 History sustained-release citalopram 40 mg tablet 40 mg PO QAM 09/20/18 11/13/19 History cyclobenzaprine 10 mg tablet 10 mg PO HS PRN Muscle Spasm 09/20/18 11/13/19 History furosemide 40 mg tablet 40 mg PO BID 09/20/18 11/13/19 History insulin aspart U-100 100 unit/mL 0 - 100 unit subcut .PUMP 09/20/18 11/13/19 History subcutaneous cartridge ipratropium 0.5 mg-albuterol 3 mg 3 ml inhalation Q6 PRN Shortness 09/20/18 11/13/19 History (2.5 mg base)/3 mL nebulization Of Breath Or Wheezing soln semaglutide 1 mg/dose (2 mg/1.5 1 dose subcut MILTON 09/20/18 11/13/19 History mL) subcutaneous pen injector (Ozempic) spironolactone 25 mg tablet 25 mg PO BID 09/20/18 11/13/19 History triamcinolone acetonide 0.1 % 1 applic topical BID PRN breakouts 09/20/18 11/13/19 History topical cream fluticasone fur. 200 mcg-umeclid 1 inh inhalation DAILY 06/04/22 06/04/22 History 62.5 mcg-vilant 25 mcg inhalat.powder (Trelegy Ellipta) guaifenesin 600 mg tablet, 600 mg PO Q12 #10 tabs 06/04/22 Rx extended release 12 hr (Mucinex) prednisone 10 mg tablet See Rx Instructions .Route 06/04/22 Rx .COMPLEX #24 tabs Hospital Stay Data Consultations 05/31/22 14:33 ED Decision to Admit Stat 05/31/22 15:40 Consult Pulmonology Routine Pending Results Patient Have Any Pending Studies at Discharge: No Discharge Instructions Given to Patient (Per Discharging Provider) Mrs Gage You came to the hospital complaining of shortness of breath, chest tightness and cough after exposure to perfume. You were treated for asthma exacerbation. Your symptoms are improving. You are being discharged on prednisone 40mg for 3 days and then 30mg for another 4 days and then stop. Please monitor your blood sugar while on prednisone and manage as we discussed. Please continue to use your inhalers and trelegy. Please ensure follow up with your Urinalysis Technician. It was a pleasure taking care of you. Total Time Total Time Spent Total Time Spent (In Minutes): 45 Total Time Includes: Examination of the Patient, Discharge Planning, Medication Reconciliation and Communication With Other Providers
--- NOTE | 2022-06-13 16:08 | Coding Query ---
CODING QUERY To promote full compliance with coding requirements relating to patient care, provider participation is requested in all cases of sheet metal layout mechanic uncertainty. Please assist us with the question(s) below: Coding Question(s): The H&P documents, "Diabetes: Plan: Patient with history of diabetes mellitus type 1, on insulin pump -Continue insulin pump, contacted glycemic pharmacist -Per patient, her last A1c was 7.9%. will check A1c am - Obesity w/BMI 40 -Lifestyle modification counseling recommended prior to discharge". The EMR documents a BMI of 35.5, and the H&P documents a BMI of 40. Due to conflicting BMI values, and to show the severity of the obesity/disease, please clarify below, in your clinical opinion. Please note that this does make a difference in the coding of this record. ( ) Most likely Obesity w/BMI 40 (x ) Most likely Obesity w/BMI 35.5 ( ) Obesity w/BMI of Other: Please Specify Physician's Response(s): Thank you Marsha Bartlett Principal Diagnosis: "that condition established after study, to be chiefly responsible for occasioning the admission of the patient to the hospital for care." Co-Existing Principal Diagnosis: "when two or more diagnoses equally meet the criteria for principal diagnosis as determined by the circumstances of admission, diagnostic work up, and/or therapy provided, and the Alphabetic Index, Tabular List, or another coding guideline does not provide sequencing direction, any one of the diagnoses may be sequenced first." "When the physician has documented what appears to be a current diagnosis in the body of the record, but has not included the diagnosis in the final diagnostic statement, the physician should be asked whether the diagnosis should be added." (Source Coding Clinic 2 QTR90. p3-4) ROS
== END 2022-06-04 14:32 | disposition home or self-care (01) | DRG 203 ==
LOC: ED 12:30 → SUATTDRO 15:41 → 4W 15:41
DX: G47.33 Obstructive sleep apnea (adult) (pediatric); I10 Essential (primary) hypertension; J45.52 Severe persistent asthma with status asthmaticus; E10.9 Type 1 diabetes mellitus without complications; Z88.8 Allergy status to other drugs, medicaments and biological substances; Z20.822 Contact with and (suspected) exposure to COVID-19; K22.70 Barrett's esophagus without dysplasia; J38.3 Other diseases of vocal cords; E66.9 Obesity, unspecified; Z79.899 Other long term (current) drug therapy; J38.5 Laryngeal spasm; F32.A Depression, unspecified; Z96.41 Presence of insulin pump (external) (internal); Z88.5 Allergy status to narcotic agent; Z68.35 Body mass index [BMI] 35.0-35.9, adult